=== PATIENT | male | born 1995 | race African-American/Black ===

== ENCOUNTER 2018-09-28 16:28 | Inpatient (IN) ==
[2018-09-28] MEDS ORDERED: ACETAMINOPHEN 500 MG TABLET PO STA (17:25)
[2018-09-28] MEDS ORDERED: ALBUTEROL/IPRATROPIUM 3 ML NEB RESP TX STA (17:52)
[2018-09-28 17:57] LABS: Basophils # 0.1 10*3/uL (0.0-0.2); Basophils % 0.8 % (0.0-0.8); Eosinophils % 0.3 % (0.00-10.9); Hematocrit 44.6 VOL% (42.0-52.0); Hemoglobin 14.1 GM/DL (14.0-18.0); Immature Granulocytes % 4.8 %; Immature Granulocytes Absolute 0.73 #; Lymphocytes # 1.5 10*3/uL (1.4-4.0); Lymphocytes % 9.5 % (21.2-54.2); Mean Corpuscular HGB Conc 31.6 GM/DL (32-36); Mean Platelet Volume 9.8 FL (9.6-12.0); Monocytes % 15.4 % (1.7-12.7); Neutrophils % 69.2 % (38.7-73.9); Platelet Count 213 T/CUMM (130-400); Red Blood Count 5.95 MC/CUMM (3.8-5.5); Red Cell Distribution Width 13.1 % (9.3-17.3); White Blood Count 15.2 T/CUMM (4-12)
[2018-09-28] MEDS ORDERED: LEVOFLOXACIN INJ 750 MG in PREMIX 1 EACH IV STA (18:18)
[2018-09-28 18:19] LABS: Calcium 9.8 MG/DL (8.5-10.1); Osmolality,Calculated 259.7 MOS/KG (273-304)
[2018-09-28] MEDS ORDERED: LEVOFLOXACIN INJ 150 ML IV ONE (18:22)
[2018-09-28 18:26] LABS: Band Neutrophils 5 % (0-10); Eosinophils 1 % (0-10); Lymphocytes 13 % (20-55); Platelet Estimate Adequate; Segmented Neutrophils 65 % (50-85); Total Cells Counted 100
[2018-09-28 18:27] LABS: Polychromasia Few; Tear Drop Cells Few
[2018-09-28] MEDS ORDERED: NICOTINE 21 MG/24 HR PATCH TRANSDERM PRN (21:22)
[2018-09-28] MEDS ORDERED: LORazepam 1 MG TABLET PO PRN (21:23)
[2018-09-28] MEDS: SODIUM CHLORIDE 0.9% 1,000 ML IV SCH (22:48)
[2018-09-29] MEDS: ALBUTEROL/IPRATROPIUM 3 ML NEB RESP TX SCH ×4 (00:57→19:05)
[2018-09-29] MEDS: SODIUM CHLORIDE 0.9% 1,000 ML IV SCH ×3 (06:23→17:04)
[2018-09-29 06:53] LABS: Basophils # 0.1 10*3/uL (0.0-0.2); Basophils % 0.9 % (0.0-0.8); Eosinophils % 0.3 % (0.00-10.9); Hematocrit 43.2 VOL% (42.0-52.0); Hemoglobin 13.8 GM/DL (14.0-18.0); Immature Granulocytes % 6.4 %; Immature Granulocytes Absolute 0.97 #; Lymphocytes # 1.8 10*3/uL (1.4-4.0); Lymphocytes % 11.7 % (21.2-54.2); Mean Corpuscular HGB Conc 31.9 GM/DL (32-36); Mean Corpuscular Volume 74.9 FL (87-102); Mean Platelet Volume 10.5 FL (9.6-12.0); Monocytes % 14.8 % (1.7-12.7); Neutrophils % 65.9 % (38.7-73.9); Platelet Count 242 T/CUMM (130-400); Red Blood Count 5.77 MC/CUMM (3.8-5.5); Red Cell Distribution Width 13.2 % (9.3-17.3); White Blood Count 15.2 T/CUMM (4-12)
[2018-09-29 07:14] LABS: Band Neutrophils 1 % (0-10); Hypochromasia 1+; Lymphocytes 12 % (20-55); Platelet Estimate Adequate; Segmented Neutrophils 72 % (50-85); Total Cells Counted 100
[2018-09-29 07:21] LABS: Calcium 9.3 MG/DL (8.5-10.1); Osmolality,Calculated 266.1 MOS/KG (273-304)
[2018-09-29] MEDS: FOLIC ACID 1 MG TABLET PO SCH (09:25)
[2018-09-29] MEDS: THIAMINE 100 MG TABLET PO SCH (09:25)
[2018-09-29] MEDS: MULTIVITAMIN (CENTRUM) TABLET PO SCH (09:25)
[2018-09-29] MEDS ORDERED: POTASSIUM CHLORIDE 20 MEQ TABLET PO PRN (12:22)
[2018-09-29] MEDS: LEVOFLOXACIN INJ 750 MG in PREMIX 1 EACH IV SCH (20:56)
[2018-09-30] MEDS: ALBUTEROL/IPRATROPIUM 3 ML NEB RESP TX SCH ×6 (02:05→23:00)
[2018-09-30] MEDS: SODIUM CHLORIDE 0.9% 1,000 ML IV SCH ×3 (05:07→21:52)
[2018-09-30 06:18] LABS: Basophils % 0.2 % (0.0-0.8); Eosinophils # 0.1 10*3/uL (0.0-0.87); Eosinophils % 0.5 % (0.00-10.9); Hematocrit 42.5 VOL% (42.0-52.0); Hemoglobin 13.3 GM/DL (14.0-18.0); Immature Granulocytes Absolute 1.33 #; Lymphocytes # 1.9 10*3/uL (1.4-4.0); Lymphocytes % 9.8 % (21.2-54.2); Mean Corpuscular HGB Conc 31.3 GM/DL (32-36); Mean Corpuscular Volume 75.9 FL (87-102); Mean Platelet Volume 10.2 FL (9.6-12.0); Monocytes % 10.3 % (1.7-12.7); Neutrophils % 72.2 % (38.7-73.9); Platelet Count 274 T/CUMM (130-400); Red Cell Distribution Width 13.2 % (9.3-17.3); White Blood Count 18.9 T/CUMM (4-12)
[2018-09-30 06:23] LABS: Calcium 9.7 MG/DL (8.5-10.1)
[2018-09-30 06:52] LABS: Anisocytosis 1+; Band Neutrophils 1 % (0-10); Eosinophils 1 % (0-10); Lymphocytes 11 % (20-55); Platelet Estimate Adequate; Segmented Neutrophils 75 % (50-85); Total Cells Counted 100
[2018-09-30] MEDS: FOLIC ACID 1 MG TABLET PO SCH (08:52)
[2018-09-30] MEDS: MULTIVITAMIN (CENTRUM) TABLET PO SCH (08:53)
[2018-09-30] MEDS: THIAMINE 100 MG TABLET PO SCH (08:53)
[2018-09-30 08:57] LABS: HIV Antigen/Antibody Result Nonreactive (Nonreactive)
[2018-09-30] MEDS: LEVOFLOXACIN INJ 750 MG in PREMIX 1 EACH IV SCH (21:54)
[2018-10-01] MEDS: ALBUTEROL/IPRATROPIUM 3 ML NEB RESP TX SCH ×6 (02:15→23:06)
[2018-10-01 08:35] LABS: Basophils % 0.2 % (0.0-0.8); Eosinophils # 0.2 10*3/uL (0.0-0.87); Eosinophils % 1.3 % (0.00-10.9); Hematocrit 41.5 VOL% (42.0-52.0); Immature Granulocytes Absolute 1.73 #; Lymphocytes # 2.2 10*3/uL (1.4-4.0); Lymphocytes % 12.7 % (21.2-54.2); Mean Corpuscular HGB Conc 31.3 GM/DL (32-36); Mean Corpuscular Volume 75.9 FL (87-102); Mean Platelet Volume 9.2 FL (9.6-12.0); Monocytes % 7.8 % (1.7-12.7); Platelet Count 298 T/CUMM (130-400); Red Blood Count 5.47 MC/CUMM (3.8-5.5); Red Cell Distribution Width 13.1 % (9.3-17.3); White Blood Count 17.3 T/CUMM (4-12)
[2018-10-01] MEDS: THIAMINE 100 MG TABLET PO SCH (08:52)
[2018-10-01] MEDS: FOLIC ACID 1 MG TABLET PO SCH (08:52)
[2018-10-01] MEDS: MULTIVITAMIN (CENTRUM) TABLET PO SCH (08:52)
[2018-10-01 09:26] LABS: Band Neutrophils 1 % (0-10); Eosinophils 2 % (0-10); Hypochromasia 2+; Lymphocytes 8 % (20-55); Microcytosis 2+; Platelet Estimate Normal; Polychromasia Slight; Segmented Neutrophils 75 % (50-85); Total Cells Counted 100
[2018-10-01] MEDS: SODIUM CHLORIDE 0.9% 1,000 ML IV SCH ×2 (19:42→20:21)
[2018-10-01] MEDS: LEVOFLOXACIN INJ 750 MG in PREMIX 1 EACH IV SCH (20:19)
[2018-10-02] MEDS: ALBUTEROL/IPRATROPIUM 3 ML NEB RESP TX SCH ×6 (03:09→23:51)
[2018-10-02 04:59] LABS: Basophils # 0.1 10*3/uL (0.0-0.2); Basophils % 0.3 % (0.0-0.8); Eosinophils # 0.3 10*3/uL (0.0-0.87); Eosinophils % 1.7 % (0.00-10.9); Hematocrit 42.1 VOL% (42.0-52.0); Immature Granulocytes % 8.8 %; Immature Granulocytes Absolute 1.37 #; Lymphocytes # 2.1 10*3/uL (1.4-4.0); Lymphocytes % 13.3 % (21.2-54.2); Mean Corpuscular HGB Conc 30.9 GM/DL (32-36); Mean Corpuscular Volume 76.8 FL (87-102); Mean Platelet Volume 9.3 FL (9.6-12.0); Monocytes % 6.5 % (1.7-12.7); Neutrophils % 69.4 % (38.7-73.9); Platelet Count 338 T/CUMM (130-400); Red Blood Count 5.48 MC/CUMM (3.8-5.5); Red Cell Distribution Width 13.2 % (9.3-17.3); White Blood Count 15.5 T/CUMM (4-12)
[2018-10-02 05:17] LABS: Calcium 9.6 MG/DL (8.5-10.1); Osmolality,Calculated 271.7 MOS/KG (273-304)
[2018-10-02 05:24] LABS: Band Neutrophils 2 % (0-10); Eosinophils 1 % (0-10); Hypochromasia Slight; Lymphocytes 19 % (20-55); Myelocytes 1 %; Ovalocytes Slight; Platelet Estimate Adequate; Segmented Neutrophils 72 % (50-85); Total Cells Counted 100
[2018-10-02 05:25] LABS: Microcytosis Slight
[2018-10-02] MEDS: FOLIC ACID 1 MG TABLET PO SCH (08:50)
[2018-10-02] MEDS: MULTIVITAMIN (CENTRUM) TABLET PO SCH (08:50)
[2018-10-02] MEDS: THIAMINE 100 MG TABLET PO SCH (08:50)
[2018-10-02] MEDS: SODIUM CHLORIDE 0.9% 1,000 ML IV SCH ×4 (08:52→23:12)
[2018-10-02] MEDS: KETOROLAC 15 MG/1 ML VIAL IV PRN ×2 (12:39→17:44)
[2018-10-02] MEDS ORDERED: DOCUSATE SODIUM 100 MG CAPSULE PO PRN (16:48)
[2018-10-02] MEDS: AZITHROMYCIN INJ 500 MG in SODIUM CHLORIDE 0.9% 250 ML IV SCH (17:41)
[2018-10-02] MEDS: methylPREDNISolone SOD SUC 125 MG/2 ML VIAL IV SCH ×2 (17:44→23:09)
[2018-10-02] MEDS: ACETYLCYSTEINE 20% 800 MG/4 ML VIAL RESP TX SCH ×2 (19:35→23:51)
[2018-10-02] MEDS: BUDESONIDE 0.5 MG/2 ML NEB RESP TX SCH (19:35)
[2018-10-02] MEDS: MEROPENEM 1,000 MG in SODIUM CHLORIDE 0.9% 100 ML IV SCH (21:06)
[2018-10-02] MEDS: VANCOMYCIN INJ 750 MG in SODIUM CHLORIDE 0.9% 250 ML IV SCH (23:12)
[2018-10-03] MEDS: KETOROLAC 15 MG/1 ML VIAL IV PRN ×2 (00:46→09:21)
[2018-10-03] MEDS: MEROPENEM 1,000 MG in SODIUM CHLORIDE 0.9% 100 ML IV SCH ×3 (01:58→18:52)
[2018-10-03] MEDS: VANCOMYCIN INJ 750 MG in SODIUM CHLORIDE 0.9% 250 ML IV SCH ×3 (03:05→19:43)
[2018-10-03] MEDS: ALBUTEROL/IPRATROPIUM 3 ML NEB RESP TX SCH ×5 (03:53→19:54)
[2018-10-03] MEDS: methylPREDNISolone SOD SUC 125 MG/2 ML VIAL IV SCH ×2 (04:58→10:05)
[2018-10-03] MEDS: SODIUM CHLORIDE 0.9% 1,000 ML IV SCH ×3 (05:10→19:43)
[2018-10-03] MEDS: BUDESONIDE 0.5 MG/2 ML NEB RESP TX SCH ×2 (07:23→19:54)
[2018-10-03] MEDS: ACETYLCYSTEINE 20% 800 MG/4 ML VIAL RESP TX SCH ×3 (07:23→19:54)
[2018-10-03] MEDS: MULTIVITAMIN (CENTRUM) TABLET PO SCH (09:22)
[2018-10-03] MEDS: THIAMINE 100 MG TABLET PO SCH (09:22)
[2018-10-03] MEDS: FOLIC ACID 1 MG TABLET PO SCH (09:22)
[2018-10-03] MEDS: methylPREDNISolone SOD SUC 40 MG/1 ML VIAL IV SCH ×2 (16:49→23:27)
[2018-10-03] MEDS: AZITHROMYCIN INJ 500 MG in SODIUM CHLORIDE 0.9% 250 ML IV SCH (16:50)
[2018-10-03] MEDS: VANCOMYCIN INJ 1,000 MG in SODIUM CHLORIDE 0.9% 250 ML IV SCH (20:37)
[2018-10-04] MEDS: ALBUTEROL/IPRATROPIUM 3 ML NEB RESP TX SCH ×6 (00:17→19:56)
[2018-10-04] MEDS: ACETYLCYSTEINE 20% 800 MG/4 ML VIAL RESP TX SCH ×4 (00:17→19:56)
[2018-10-04] MEDS: MEROPENEM 1,000 MG in SODIUM CHLORIDE 0.9% 100 ML IV SCH ×3 (02:11→17:41)
[2018-10-04] MEDS: SODIUM CHLORIDE 0.9% 1,000 ML IV SCH ×2 (02:13→12:24)
[2018-10-04] MEDS: VANCOMYCIN INJ 1,000 MG in SODIUM CHLORIDE 0.9% 250 ML IV SCH ×3 (04:25→20:29)
[2018-10-04 04:52] LABS: Basophils # 0.1 10*3/uL (0.0-0.2); Basophils % 0.2 % (0.0-0.8); Hematocrit 36.5 VOL% (42.0-52.0); Hemoglobin 11.8 GM/DL (14.0-18.0); Immature Granulocytes % 4.2 %; Immature Granulocytes Absolute 1.15 #; Lymphocytes # 0.9 10*3/uL (1.4-4.0); Lymphocytes % 3.2 % (21.2-54.2); Mean Corpuscular HGB Conc 32.3 GM/DL (32-36); Mean Corpuscular Volume 74.9 FL (87-102); Mean Platelet Volume 9.2 FL (9.6-12.0); Monocytes % 1.5 % (1.7-12.7); Neutrophils % 90.9 % (38.7-73.9); Platelet Count 385 T/CUMM (130-400); Red Blood Count 4.87 MC/CUMM (3.8-5.5); Red Cell Distribution Width 13.3 % (9.3-17.3); White Blood Count 27.2 T/CUMM (4-12)
[2018-10-04 05:11] LABS: Calcium 9.2 MG/DL (8.5-10.1); Osmolality,Calculated 284.4 MOS/KG (273-304)
[2018-10-04 06:23] LABS: Band Neutrophils 1 % (0-10); Lymphocytes 3 % (20-55); Platelet Estimate Adequate; Segmented Neutrophils 95 % (50-85); Total Cells Counted 100
[2018-10-04] MEDS: BUDESONIDE 0.5 MG/2 ML NEB RESP TX SCH ×2 (07:01→19:57)
[2018-10-04] MEDS: FOLIC ACID 1 MG TABLET PO SCH (08:51)
[2018-10-04] MEDS: methylPREDNISolone SOD SUC 40 MG/1 ML VIAL IV SCH ×3 (08:51→23:19)
[2018-10-04] MEDS: THIAMINE 100 MG TABLET PO SCH (08:51)
[2018-10-04] MEDS: MULTIVITAMIN (CENTRUM) TABLET PO SCH (08:51)
[2018-10-04] MEDS: AZITHROMYCIN INJ 500 MG in SODIUM CHLORIDE 0.9% 250 ML IV SCH (17:40)
[2018-10-05] MEDS: ALBUTEROL/IPRATROPIUM 3 ML NEB RESP TX SCH ×6 (00:15→20:07)
[2018-10-05] MEDS: ACETYLCYSTEINE 20% 800 MG/4 ML VIAL RESP TX SCH ×4 (00:15→20:08)
[2018-10-05] MEDS: MEROPENEM 1,000 MG in SODIUM CHLORIDE 0.9% 100 ML IV SCH ×3 (02:45→18:15)
[2018-10-05] MEDS: VANCOMYCIN INJ 1,000 MG in SODIUM CHLORIDE 0.9% 250 ML IV SCH ×2 (05:02→12:59)
[2018-10-05 05:20] LABS: Basophils % 0.2 % (0.0-0.8); Hematocrit 43.6 VOL% (42.0-52.0); Hemoglobin 13.7 GM/DL (14.0-18.0); Immature Granulocytes % 3.4 %; Lymphocytes # 0.8 10*3/uL (1.4-4.0); Lymphocytes % 3.8 % (21.2-54.2); Mean Corpuscular HGB Conc 31.4 GM/DL (32-36); Mean Corpuscular Volume 75.6 FL (87-102); Mean Platelet Volume 8.8 FL (9.6-12.0); Monocytes % 2.4 % (1.7-12.7); Neutrophils % 90.2 % (38.7-73.9); Platelet Count 447 T/CUMM (130-400); Red Blood Count 5.77 MC/CUMM (3.8-5.5); Red Cell Distribution Width 13.4 % (9.3-17.3); White Blood Count 20.5 T/CUMM (4-12)
[2018-10-05 05:40] LABS: Albumin 3.1 G/DL (3.4-5.0); Bilirubin,Total 0.5 MG/DL (0.2-1.0); Calcium 9.7 MG/DL (8.5-10.1); Osmolality,Calculated 275.8 MOS/KG (273-304)
[2018-10-05 05:53] LABS: Band Neutrophils 1 % (0-10); Lymphocytes 6 % (20-55); Segmented Neutrophils 92 % (50-85); Total Cells Counted 100
[2018-10-05 05:55] LABS: Anisocytosis Slight; Microcytosis 1+; Target Cells Few
[2018-10-05 05:56] LABS: Hypochromasia Slight
[2018-10-05 05:57] LABS: Ovalocytes Slight; Platelet Estimate Increased; Polychromasia Slight
[2018-10-05] MEDS: SODIUM CHLORIDE 0.9% 1,000 ML IV SCH (06:28)
[2018-10-05] MEDS: BUDESONIDE 0.5 MG/2 ML NEB RESP TX SCH ×2 (07:14→20:08)
[2018-10-05] MEDS: methylPREDNISolone SOD SUC 40 MG/1 ML VIAL IV SCH (09:27)
[2018-10-05] MEDS: FOLIC ACID 1 MG TABLET PO SCH (09:28)
[2018-10-05] MEDS: MULTIVITAMIN (CENTRUM) TABLET PO SCH (09:28)
[2018-10-05] MEDS: THIAMINE 100 MG TABLET PO SCH (09:28)
[2018-10-05] MEDS ORDERED: methylPREDNISolone SOD SUC 40 MG/1 ML VIAL IV SCH (15:30)
[2018-10-05] MEDS: AZITHROMYCIN INJ 500 MG in SODIUM CHLORIDE 0.9% 250 ML IV SCH (16:12)
[2018-10-05] MEDS ORDERED: hydrALAZINE 20 MG/1 ML VIAL IV PRN (22:30)
[2018-10-06] MEDS: ALBUTEROL/IPRATROPIUM 3 ML NEB RESP TX SCH ×4 (00:12→11:24)
[2018-10-06] MEDS: ACETYLCYSTEINE 20% 800 MG/4 ML VIAL RESP TX SCH ×2 (00:13→07:10)
[2018-10-06] MEDS: SODIUM CHLORIDE 0.9% 1,000 ML IV SCH (03:06)
[2018-10-06 04:59] LABS: Basophils # 0.1 10*3/uL (0.0-0.2); Basophils % 0.4 % (0.0-0.8); Hematocrit 44.1 VOL% (42.0-52.0); Hemoglobin 14.1 GM/DL (14.0-18.0); Immature Granulocytes % 4.3 %; Immature Granulocytes Absolute 0.96 #; Lymphocytes # 2.2 10*3/uL (1.4-4.0); Lymphocytes % 9.9 % (21.2-54.2); Mean Corpuscular Volume 74.9 FL (87-102); Mean Platelet Volume 8.8 FL (9.6-12.0); Monocytes % 6.6 % (1.7-12.7); Neutrophils % 78.8 % (38.7-73.9); Platelet Count 499 T/CUMM (130-400); Red Blood Count 5.89 MC/CUMM (3.8-5.5); Red Cell Distribution Width 13.3 % (9.3-17.3); White Blood Count 22.2 T/CUMM (4-12)
[2018-10-06 05:25] LABS: Alanine Aminotransferase 75 U/L (16-61); Albumin 3.1 G/DL (3.4-5.0); Alkaline Phosphatase 82 U/L (45-117); Aspartate Amino Transferase 35 U/L (0-37); Bilirubin,Total < 0.39 MG/DL (0.2-1.0); Blood Urea Nitrogen 9 MG/DL (7-18); Calcium 9.6 MG/DL (8.5-10.1); Glucose 122 MG/DL (74-106); Osmolality,Calculated 276.5 MOS/KG (273-304); Total Protein 7.7 G/DL (6.4-8.3)
[2018-10-06 06:02] LABS: Lymphocytes 13 % (20-55); Segmented Neutrophils 79 % (50-85); Total Cells Counted 100
[2018-10-06 06:03] LABS: Hypochromasia 1+; Microcytosis 1+; Platelet Estimate Adequate
[2018-10-06] MEDS: BUDESONIDE 0.5 MG/2 ML NEB RESP TX SCH (07:10)
[2018-10-06] MEDS ORDERED: AZITHROMYCIN 250 MG TABLET PO ONE (09:00)
[2018-10-06] MEDS ORDERED: predniSONE 20 MG TABLET PO SCH (09:00)
[2018-10-06] MEDS ORDERED: LEVOFLOXACIN 750 MG TABLET PO SCH (09:00)
[2018-10-06] MEDS: THIAMINE 100 MG TABLET PO SCH (09:29)
[2018-10-06] MEDS: MULTIVITAMIN (CENTRUM) TABLET PO SCH (09:30)
[2018-10-06] MEDS: FOLIC ACID 1 MG TABLET PO SCH (09:30)
[2018-10-06 12:41] VITALS: BP 126/96
== END 2018-10-06 13:48 | disposition home or self-care (01) | DRG 194 ==
LOC: N.2E 16:28 → N.ED 16:28 → SUATTDRO 21:18 → N.2E 22:32
PROVIDERS: ADMIT Internal Medicine; ATTEND Internal Medicine